=== PATIENT | male | born 1945 | race Caucasian/White ===

== ENCOUNTER 2023-11-23 19:00 | Emergency (ER) | payer MEDICARE ==
[~2023-11-23] VITALS: Ht 180.3 cm; Wt 113.6 kg
[2023-11-23 19:24] VITALS: BP 146/72
[2023-11-23 19:31] VITALS: BP 148/66
[2023-11-23 20:01] VITALS: BP 127/60
[2023-11-23 20:27] LABS: BASO% 0.1 % (0-3); EOS% 1.4 % (0-8); IMMATURE GRANULOCYTES 0.4 % (0.0-5.0); LYMPH% 6.4 % (15-41); MEAN CORPUSCULAR HGB 31.7 pG CALC (26.0-32.0); MEAN CORPUSCULAR HGB CONC 32.4 g/dL CAL (32.0-36.0); MONO% 12.3 % (2-13); NEUT# 10.59 thou/uL (1.82-7.42); NEUT% 79.4 % (42-76); RED BLOOD COUNT 3.82 mill/uL (4.70-6.10); RED CELL DISTRI WIDTH 12.7 % (11.5-15.5)
[2023-11-23 20:28] LABS: HEMATOCRIT 37.4 % (39.0-50.0); HEMOGLOBIN 12.1 g/dl (14.0-18.0); MEAN CELL VOLUME 97.9 fL CALC (80.0-100.0)
[2023-11-23 20:38] LABS: ALBUMIN 4.4 g/dL (3.2-5.0); ALKALINE PHOSPHATASE 73 u/l (38-126); ANION GAP 14 (6-22 (CALC)); BUN 28 mg/dL (8-23); BUN/CREATININE RATIO 21 (12-20 (CALC)); CARBON DIOXIDE 25 mmol/l (22-30); CHLORIDE 105 mmol/l (95-108); CREATININE 1.3 mg/dL (0.7-1.3); GFR FOR AFR.AMER. > 60 ML/MIN (>=60 (CALC)); GFR OTHER RACES 53 ML/MIN (>=60 (CALC)); POTASSIUM 4.3 mmol/l (3.5-5.1); SGOT/AST 31 u/l (19-48); SODIUM 140 mmol/l (137-146); TOTAL PROTEIN 7.2 g/dL (6.3-8.2)
[2023-11-23 20:39] LABS: BILIRUBIN, TOTAL 0.4 mg/dL (0.2-1.3)
[2023-11-23 20:47] LABS: ACT PARTIAL THROMBO TIME 28.2 SECONDS (20.0-32.5); INTERNATIONAL NORMALIZED RATIO 1.1 RATIO (0.7-1.3); PROTHROMBIN TIME 10.1 SECONDS (9.0-12.5)
[2023-11-23 20:51] LABS: D-DIMER 0.7 mg/L (0.19-0.60)
[2023-11-24 00:36] VITALS: BP 127/60
== END 2023-11-24 00:36 | disposition home or self-care (01) ==
LOC: ED 19:00
PROVIDERS: Emergency Medicine
DX: R05.9 Cough, unspecified (principal); C79.51 Secondary malignant neoplasm of bone; I10 Essential (primary) hypertension; Z85.46 Personal history of malignant neoplasm of prostate; Z85.51 Personal history of malignant neoplasm of bladder; Z85.028 Personal history of other malignant neoplasm of stomach; Z20.822 Contact with and (suspected) exposure to COVID-19; R06.02 Shortness of breath
CPT/HCPCS: Q9967